=== PATIENT | female | born 2005 ===

== ENCOUNTER 2023-04-18 23:25 | Inpatient (IN) | payer BC, MEDICAID ==
[2023-04-18] MEDS ORDERED: MAGNESIUM HYDROXIDE 2,400 MG/30 ML CUP PO PRN (23:36)
[2023-04-18] MEDS ORDERED: MAG HYDROX/AL HYDROX/SIMETH 30 ML CUP PO PRN (23:36)
[2023-04-18] MEDS ORDERED: ACETAMINOPHEN TAB 325 MG TAB PO PRN (23:36)
[2023-04-18] MEDS ORDERED: OLANZapine 10 MG VIAL IM PRN (23:38)
[2023-04-18] MEDS ORDERED: hydrOXYzine pamoate 25 MG CAP PO PRN (23:38)
[2023-04-18] MEDS ORDERED: hydrOXYzine HCL 50 MG/ML 1 ML VIAL IM PRN (23:38)
[2023-04-18] MEDS ORDERED: OLANZapine 5 MG TAB PO PRN (23:38)
[2023-04-19] MEDS ORDERED: SERTRALINE 25 MG TAB PO SCH (09:00)
[2023-04-19 09:03] LABS: Basophils % (A) 1 %; Eosinophils # (A) 0.1 k/uL (0-0.7); Eosinophils % (A) 2 %; HCT 37.8 % (34.0-46.0); Lymphocytes # (A) 2.2 k/uL (1.0-4.8); Lymphocytes % (A) 48 %; MCH 29.2 pg (25.0-35.0); MCHC 31.7 g/dL (31.0-37.0); Mean Platelet Volume 7.5; Monocytes # (A) 0.3 k/uL (0-1.0); Monocytes % (A) 6 %; Neutrophils # (A) 1.9 k/uL (1.3-7.7); Neutrophils % (A) 41 %; Platelet Count 298 k/uL (150-450); RBC 4.11 m/uL (3.80-5.40); RDW 14.7 % (11.5-15.5); WBC 4.5 k/uL (4.0-11.0)
[2023-04-19 09:19] LABS: ALT 18 U/L (4-34); AST 25 U/L (14-36); African American GFR (CKD) >90 (>60 ml/min/1.73 sqM); Albumin 4.5 g/dL (3.5-5.0); Alkaline Phosphatase 59 U/L (38-126); Anion Gap 11 mmol/L; Blood Urea Nitrogen 10 mg/dL (7-17); Calcium 9.5 mg/dL (8.4-10.2); Carbon Dioxide 22 mmol/L (22-30); Chloride 104 mmol/L (98-107); Glucose 164 mg/dL (74-99); Non-African American GFR(CKD) >90 (>60 ml/min/1.73 sqM); Potassium 4.2 mmol/L (3.5-5.1); Sodium 137 mmol/L (137-145); Total Bilirubin 0.6 mg/dL (0.2-1.3); Total Protein 7.6 g/dL (6.3-8.2)
[2023-04-19] MEDS: NICOTINE 14MG/24HR PATCH TRANSDERM SCH (09:22)
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
[2023-04-19] MEDS ORDERED: ONDANSETRON ODT 4 MG TAB PO STA (12:55)
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
[2023-04-19] MEDS: PRAZOSIN 1 MG CAP PO SCH (21:24)
[2023-04-20] MEDS ORDERED: ESCITALOPRAM 10 MG TAB PO SCH (09:00)
[2023-04-20] MEDS: NICOTINE 14MG/24HR PATCH TRANSDERM SCH (09:07)
--- NOTE | 2023-04-20 12:57 | P.PN ---
Progress Note - Text Progress Note Date: 04/20/23 Interval History: Patient was seen attending group and was directable and agreeable to speak with travel writer in the office. Currently, the patient is not reporting any suicidal or homicidal ideation, intention, and/or plan. She is not reporting any auditory or visual hallucinations. She denies any paranoia or other delusions. She has been adherent with her medication is not reporting any significant side effects at this time. She reports that she is feeling significantly better today and is future and goal oriented. She states that she was able to speak with her family and they have been able to arrange supervision of her pets. She reports no issues regarding her sleep or appetite. Mental Status Exam: General Appearance: Patient appears to be stated age is alert, directable, and cooperative. Behavior: Patient is calmly seated without any agitated behavior. Speech: Patient's speech is fluent and nonpressured. Mood/Affect: Mood is improving mildly, affect is congruent and constricted. Suicidality/Homicidality: Patient denies having any suicidal or homicidal ideation intent or plan. Perceptions: Patient denies any visual hallucinations and denies any auditory hallucinations Though content/process: There is no evidence of any delusional thought content and thought process is linear and goal-directed. Memory and concentration: AOX3, grossly intact for the purposes of this session Judgment and insight: Improving mildly Vital Signs Temp 98.6 F 04/20/23 08:00 Pulse 97 04/20/23 08:00 Resp 16 04/20/23 08:00 BP 107/58 04/20/23 08:00 Pulse Ox 98 04/20/23 08:00 FiO2 Laboratory Results - Last 24 Hours 04/19/23 08:[address] Glu mg/dL 103 Hemoglobin A1c 5.2 Assessment Major depressive disorder, recurrent, severe Posttraumatic stress disorder Cluster B personality traits Plan: -Patient continues to meet criteria for inpatient psychiatric admission for symptom stabilization and safety. Patient has signed adult voluntary form and medication consent and was placed in patient's chart. -Medications: Increase Lexapro to 20 mg daily for depression/anxiety/PTSD Prazosin 1 mg by mouth at bedtime for PTSD related nightmares -When necessary Zyprexa and Vistaril for agitation/aggression. -NRT - nicotine patch -SW on board for discharge planning. Encouraged the patient to participate in milieu.
[2023-04-20] MEDS: PRAZOSIN 1 MG CAP PO SCH (21:50)
[2023-04-21] MEDS: ESCITALOPRAM 20 MG TAB PO SCH (08:53)
[2023-04-21] MEDS: NICOTINE 14MG/24HR PATCH TRANSDERM SCH (10:29)
--- NOTE | 2023-04-21 15:57 | P.PN ---
Subjective Progress Note Date: 04/21/23 Principal diagnosis: IMPRESSIONS: Major depressive disorder, recurrent, severe Posttraumatic stress disorder Cluster B personality traits Subjective: The patient is very positive about being on Lexapro because her mother is on that and it works well for her. We also reviewed the symptoms that Lexapro works on and she agreed that she struggles with those. MENTAL STATUS EXAM: General Appearance: Patient appears to be stated age is alert, directable, and attempts to cooperate. Patient appears to have fair hygiene and grooming. Kassi ent has 2 nose rings on her left nostril. She says that she is having trouble with breathing and asked why she can sleep did not want to add any medication for sleep at this time Behavior: Patient is seated without any agitated behavior. Eye contact is good. Patient is pleasant during the assessment. Speech: Patient's speech is fluent and nonpressured. Mood/Affect: Patient reports their mood is depressed, affect is congruent and tearful. Suicidality/Homicidality: Patient reports suicidal ideation however denies any homicidal ideation. She said that the medicines weren't helping it so I e ducated her that they take to 6 weeks to work how they work and what else she needs to work on besides take meds Perceptions: Patient denies any visual hallucinations and denies any auditory hallucinations Though content/process: There is no evidence of any delusional thought content and thought process is linear and goal-directed. Memory and concentration: AOX3, grossly intact for the purposes of this session. Can spell "WORLD" backwards Judgment and insight: Fair STRENGTHS/WEAKNESSES: Strength is that the patient is resilient and has good family support. Weakness is that the patient has a family history of suicide and a prior attempt at suicide. Assessment: She is tolerating the medication well having some trouble with sleep did not want to try trazodone but she doesn't sleep tonight she is willing to give that a try PLAN: -Patient is admitted under voluntary status to MHU for stabilization of psychiatric symptoms and safety. Patient signed adult voluntary form and medication consent and is placed in patient's chart. -Medications : Will start patient on Lexapro 20 mg by mouth daily for depression/anxiety/PTSD Prazosin 1 mg by mouth at bedtime for PTSD related nightmares she feels that this has been helpful already -Zyprexa and Vistaril PRN for agitation/aggression -Patient was counselled on substance abuse and desired to cut back on use -Patient was informed of the risks, benefits and side effects of the medication and patient verbally consented to taking the medications. Patient signed med consent form and was placed in chart. -Internal Medicine consult to perform medical evaluation and physical. -NRT - nicotine patch -SW on board for discharge planning. Encourage patient to participate in groups to work on coping skills. 04/19/23 11:28. I. His and I will is a 30 nose a worker R Objective - Vital Signs Vital signs: Vital Signs Temp 98.6 F 04/20/23 08:00 Pulse 97 04/20/23 08:00 Resp 16 04/20/23 08:00 BP 107/58 04/20/23 08:00 Pulse Ox 98 04/20/23 08:00 FiO2 - Labs CBC & Chem 7: 04/19/23 08:31 04/19/23 08:31
[2023-04-21 18:52] VITALS: TEMP 98
[2023-04-21] MEDS ORDERED: SODIUM CHLORIDE 0.65% NASAL SPRAY 44 ML BTL NASAL PRN (20:14)
[2023-04-21] MEDS: PRAZOSIN 1 MG CAP PO SCH (22:05)
[2023-04-22 05:30] VITALS: BP 112/59; PULSE 95; RESP 18
[2023-04-22] MEDS: ESCITALOPRAM 20 MG TAB PO SCH (08:44)
--- NOTE | 2023-04-22 09:08 | P.PN ---
Subjective Progress Note Date: 04/22/23 Principal diagnosis: IMPRESSIONS: Major depressive disorder, recurrent, severe Posttraumatic stress disorder Cluster B personality traits Subjective: The patient is very positive about being on Lexapro because her mother is on that and it works well for her. We also reviewed the symptoms that Lexapro works on and she agreed that she struggles with those. She did not sleep well last night wants to try medicine for that. MENTAL STATUS EXAM: She was yawning during the session I told her to try not to take a nap today or she wouldn't sleep tonight General Appearance: Patient appears to be stated age is alert, directable, and cooperative. Patient has fair hygiene and grooming. Patient has 2 nose rings on her left nostril. Behavior: Patient is seated without any agitated behavior. Eye contact is good. Patient is pleasant during the assessment. Speech: Patient's speech is fluent and nonpressured. Mood/Affect: Patient reports their mood is depressed, affect is congruent but she is able to smile and is no longer tearful.. Suicidality/Homicidality: Patient reports suicidal ideation are decreasing and she is starting to have more hope and she denies any homicidal ideation. Perceptions: Patient denies any visual hallucinations and denies any auditory hallucinations Though content/process: There is no evidence of any delusional thought content and thought process is linear and goal-directed. Memory and concentration: AOX3, grossly intact for the purposes of this session. Can spell "WORLD" backwards Judgment and insight: Fair STRENGTHS/WEAKNESSES: Strength is that the patient is resilient and has good family support. Weakness is that the patient has a family history of suicide and a prior attempt at suicide. Assessment: She is tolerating the medication well having some trouble with sleep did not want to try trazodone but she did not sleep well last night even though she took something for her nasal congestion. She is willing to try something tonight PLAN: Add trazodone 100 an hour before bed along with 2 mg of melatonin. I told her if that made her too sleepy we could cut off to 50 if it didn't quite work we could go up to 150 -Patient is admitted under voluntary status to MHU for stabilization of psychiatric symptoms and safety. Patient signed adult voluntary form and medication consent and is placed in patient's chart. -Medications : Will start patient on Lexapro 20 mg by mouth daily for depression/anxiety/PTSD she is very positive about this medication Prazosin 1 mg by mouth at bedtime for PTSD related nightmares she feels that this has been helpful already she did not have any nightmares but did not sleep well last night -Zyprexa and Vistaril PRN for agitation/aggression -Patient was counselled on substance abuse and desired to cut back on use -Patient was informed of the risks, benefits and side effects of the medication and patient verbally consented to taking the medications. Patient signed med consent form and was placed in chart. -Internal Medicine consult to perform medical evaluation and physical. -NRT - nicotine patch -SW on board for discharge planning. Encourage patient to participate in groups to work on coping skills. 04/19/23 11:28. I. Objective - Vital Signs Vital signs: Vital Signs Temp 98.0 F 04/21/23 18:46 Pulse 95 04/22/23 05:30 Resp 18 04/22/23 05:30 BP 112/59 04/22/23 05:30 Pulse Ox 98 04/22/23 05:30 FiO2 - Labs CBC & Chem 7: 04/19/23 08:31 04/19/23 08:31
[2023-04-22] MEDS: NICOTINE 14MG/24HR PATCH TRANSDERM SCH (10:20)
[2023-04-22] MEDS ORDERED: MELATONIN 1 MG TAB PO SCH (21:00)
[2023-04-22] MEDS ORDERED: traZODone HCL 100 MG TAB PO SCH (21:00)
[2023-04-22] MEDS: PRAZOSIN 1 MG CAP PO SCH (22:07)
[2023-04-23] MEDS: ESCITALOPRAM 20 MG TAB PO SCH (08:10)
[2023-04-23] MEDS: NICOTINE 14MG/24HR PATCH TRANSDERM SCH (08:10)
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
== END 2023-04-23 15:26 | disposition home or self-care (01) | DRG 885 ==
LOC: 3MHU 04-19 01:48
PROVIDERS: ADMIT Psychiatry & Neurology Psychiatry; ATTEND Psychiatry & Neurology Psychiatry
DX: F33.2 Major depressive disorder, recurrent severe without psychotic features (principal); R45.851 Suicidal ideations; F43.10 Post-traumatic stress disorder, unspecified; F60.3 Borderline personality disorder; F60.89 Other specific personality disorders; G47.00 Insomnia, unspecified; Z79.899 Other long term (current) drug therapy; Z82.5 Family history of asthma and other chronic lower respiratory diseases; Z91.410 Personal history of adult physical and sexual abuse; Z91.411 Personal history of adult psychological abuse; Z88.0 Allergy status to penicillin
CPT/HCPCS: 80053; 83036; 84443; 85025